=== PATIENT | male | born 1980 | race Hispanic/Latino ===

== ENCOUNTER 2017-01-14 17:26 | Emergency (ER) | payer OTHER ==
[2017-01-14 18:00] VITALS: BMI 29.0
[2017-01-14 18:04] VITALS: RESP 20
--- NOTE | 2017-01-14 18:39 | C.PDOC ---
History Of Present Illness 36 y/o male presents to emergency department with complaint of left sided chest/ rib pain that radiates to the back and neck for 2 days. Patient reports pain has been consistent, worsening with movement and deep inspiration. He notes that he went for a strenuous bike ride 2 days ago. Patient states pain initially felt "like a stitch". Notes past medical history of DVT appx 6 years ago, was on warfarin for 1 year following. Otherwise, denies fever, chills, dizziness, SOB, palpitations, nausea, vomiting, or other associated symptoms. Time Seen by Provider: 01/14/17 18:38 Chief Complaint (Nursing): Chest Pain History Per: Patient History/Exam Limitations: no limitations Onset/Duration Of Symptoms: Days, Persistent Current Symptoms Are (Timing): Still Present Quality: "Pain" Associated Symptoms: denies: Dyspnea, Diaphoresis Exacerbating Factors: Turning, Movement, Deep Breathing Recent travel outside of the [place]: No Past Medical History Reviewed: Historical Data, Nursing Documentation, Vital Signs Vital Signs: Last Vital Signs Temp 98 F 01/14/17 23:09 Pulse 72 01/14/17 23:09 Resp 20 01/14/17 23:09 BP 106/69 01/14/17 23:09 Pulse Ox 97 01/14/17 23:09 - Medical History PMH: Crohn's Disease, Deep Vein Thrombosis Family History: States: Unknown Family Hx - Social History Hx Alcohol Use: Yes Hx Substance Use: No - Immunization History Hx Tetanus Toxoid Vaccination: No Hx Influenza Vaccination: No Hx Pneumococcal Vaccination: No Review Of Systems Except As Marked, All Systems Reviewed And Found Negative. Constitutional: Negative for: Fever, Chills Cardiovascular: Positive for: Chest Pain. Negative for: Palpitations Respiratory: Negative for: Shortness of Breath, Wheezing Gastrointestinal: Negative for: Nausea, Vomiting Musculoskeletal: Positive for: Back Pain Skin: Negative for: Rash Neurological: Negative for: Weakness, Numbness, Headache, Dizziness Physical Exam - Physical Exam Appears: Non-toxic, No Acute Distress Skin: Normal Color, Warm, Dry Head: Atraumatic, Normacephalic Eye(s): bilateral: Normal Inspection, PERRL, EOMI Ear(s): Bilateral: Normal Nose: Normal Oral Mucosa: Moist Neck: Normal ROM, Supple Chest: Symmetrical Cardiovascular: Rhythm Regular (S1/S2 within normal limits), No Edema, No JVD Respiratory: No Accessory Muscle Use, No Rales, No Rhonchi, No Stridor, No Wheezing, Other (Lungs are CTA. Splinting on deep breaths. ) Gastrointestinal/Abdominal: Soft, No Tenderness, No Guarding, No Rebound Extremity: Normal ROM, No Pedal Edema, No Calf Tenderness, Capillary Refill (< 2 sec.), Other (No edema, clubbing or cyanosis) Extremity: Bilateral: Normal Color And Temperature Neurological/Psych: Oriented x3, Normal Speech, Normal Cognition, Normal Cranial Nerves, Normal Motor, Normal Sensation ED Course And Treatment - Laboratory Results Result Diagrams: 01/14/17 19:19 01/14/17 19:19 Lab Interpretation: Normal O2 Sat by Pulse Oximetry: 100 (RA) Pulse Ox Interpretation: Normal - CT Scan/US CT Abdomen and Pelvis With Intravenous Contrast Other Rad Studies (CT/US): Read By Radiologist, Radiology Report Reviewed CT/US Interpretation: FINDINGS: Lower thorax: The bilateral lung bases are clear. ABDOMEN: Liver: No acute findings. Gallbladder and bile ducts: The gallbladder is decompressed. No calcified stones. No significant. intra- or extrahepatic biliary ductal dilation. Pancreas: Enhances homogeneously. No ductal dilation. No discrete mass. Spleen: No acute findings. Adrenals: No acute findings. Kidneys and ureters: No acute findings. No hydronephrosis or renal calculi. No discrete solid mass. PELVIS: Bladder: The bladder is distended, but otherwise unremarkable. Reproductive: No acute findings. Appendix: The contrast-filled appendix is of normal caliber (series 3, image 127 ). ABDOMEN and PELVIS: Stomach and bowel: Oral contrast extends to the level of the colon, without obstruction. No mucosal. thickening. Peritoneum: No significant fluid collection. No free air. Lymph nodes: No pathologically enlarged lymph nodes. Vasculature: Unremarkable. Bones: No acute fracture. IMPRESSION: Normal appendix. No acute abdominal pathology to account for patient's symptoms, as detailed above. Medical Decision Making Medical Decision Making: Initial Impression: Atypical chest wall syndrome vs PE, ACS Plan: * EKG, bloodwork including D dimer. Naproxen 550mg PO. * Reassess Progress Notes: 20:02 - D-dimer found to be 626. CT chest ordered. 20:21 - Pt notes significant improvement of symptoms with Naproxen. Patient was informed of his D-dimer level and is going for CT scan of chest. Disposition - Disposition Referrals: [facility] [Outside] Disposition: HOME/ ROUTINE Disposition Time: 22:47 Condition: GOOD Additional Instructions: Take levaquin as prescribed Prescriptions: Acetaminophen/Hydrocodone Bi [Vicodin 300 mg-5 mg] 1 tab PO QID PRN #12 tab PRN Reason: pain levoFLOXacin [Levaquin] 500 mg PO DAILY 10 Days #10 tab Forms: [facility] (Bengali), General Discharge Instructions Print Language: ESTONIAN - Clinical Impression Clinical Impression: Pneumonia - Scribe Statement The provider has reviewed the documentation as recorded by the Scribe Ministerio Saravia All medical record entries made by the Adeleibe were at my direction and personally dictated by me. I have reviewed the chart and agree that the record accurately reflects my personal performance of the history, physical exam, medical decision making, and the department course for this patient. I have also personally directed, reviewed, and agree with the discharge instructions and disposition.
[2017-01-14] MEDS ORDERED: Naproxen 550 mg Tab PO STA (18:48)
[2017-01-14 19:22] LABS: BASO # 0.1 K/uL (0.0-0.2); BASO % 0.7 % (0.0-2.0); EOS # 0.1 K/uL (0.0-0.7); EOS % 0.9 % (0.0-4.0); HEMATOCRIT 40.6 % (35.0-51.0); LYMPH # 2.3 K/uL (1.0-4.3); LYMPH % 24.8 % (20.0-40.0); MEAN CELL VOLUME 85.8 fL (80.0-94.0); MEAN CORPUSCULAR HEMOGLOBIN 28.8 pg (27.0-31.0); MEAN CORPUSCULAR HGB CONC 33.5 g/dL (33.0-37.0); MEAN PLATELET VOLUME 7.8 fL (7.2-11.7); MONO % 10.6 % (0.0-10.0); RED CELL DISTRIBUTION WIDTH 14.7 % (11.5-14.5); WHITE BLOOD COUNT 9.2 K/uL (4.8-10.8)
[2017-01-14 19:30] LABS: CHLORIDE 98 mmol/L (98-107); POTASSIUM 4.3 mmol/L (3.6-5.2); SODIUM 137 mmol/L (132-148)
[2017-01-14 19:32] LABS: GFR AFRICAN-AMERICAN > 60
[2017-01-14 19:33] LABS: ALB/GLOB RATIO 1.2 (1.0-2.1); ALKALINE PHOSPHATASE 78 U/L (38-126); ALT/SGPT 45 U/L (21-72); AST/SGOT 21 U/L (17-59); BLOOD UREA NITROGEN 12 mg/dL (9-20); CALCIUM 9.3 mg/dl (8.6-10.4); CARBON DIOXIDE 26 mmol/L (22-30); GLUCOSE,RANDOM 87 mg/dL (75-110); TOTAL PROTEIN 7.4 g/dL (6.3-8.3)
[2017-01-14] MEDS ORDERED: Naproxen 550 mg Tab PO ONE (19:36)
[2017-01-14] MEDS ORDERED: Iodixanol 320 MG/ML 100 ML BOTTLE IV ONE (21:01)
--- NOTE | 2017-01-14 22:39 | CT ---
EXAM: CT Chest With Intravenous Contrast CLINICAL HISTORY: 36 years old, male; Pain; Chest pain; Type not specified TECHNIQUE: Axial computed tomography images of the chest with intravenous contrast. All CT scans at this facility use one or more dose reduction techniques, viz.: automated exposure control; ma/kV adjustment per patient size (including targeted exams where dose is matched to indication; i.e. head); or iterative reconstruction technique. Coronal and sagittal reformatted images were created and reviewed. CONTRAST: 100 mL of visipaque 320 administered intravenously. COMPARISON: No relevant prior studies available. EXAM: FINDINGS: Lungs: No mass. No consolidation. Small left-sided pleural effusion, with adjacent compressive atelectasis. Mild left basilar consolidation is also present. Pleural spaces: As above. Heart: No cardiomegaly. No significant pericardial effusion. Vasculature: No aortic aneurysm. Narrowing of the subclavian vein, at the thoracic inlet, for which clinical correlation is needed. Lymph nodes: Prominence of the mediastinal lymph nodes, the largest node at the level of the aorto pulmonary window measuring 8 mm in short axis dimension. Bones: No acute fracture. IMPRESSION: Mild left basilar consolidation. Small left-sided pleural effusion with adjacent compressive atelectasis. Narrowing of the subclavian vein at the level of the thoracic inlet for which clinical correlation (for thoracic outlet syndrome) is needed.
[2017-01-14 23:14] VITALS: BP 106/69; PULSE 72; TEMP 98
[2017-01-15 00:19] VITALS: O2SAT 100
--- NOTE | 2017-01-15 00:29 | RAD ---
HISTORY: chest pain COMPARISON: CT chest performed same day TECHNIQUE: Chest PA and lateral FINDINGS: LUNGS: Mild left basilar atelectasis. No focal consolidation seen. PLEURA: Small left pleural effusion. CARDIOVASCULAR: Heart size is within normal limits. OSSEOUS STRUCTURES: Visualized osseous structures are unremarkable. VISUALIZED UPPER ABDOMEN: Unremarkable. OTHER FINDINGS: None. IMPRESSION: Small left pleural effusion. Mild left basilar atelectasis.
--- NOTE | 2017-01-19 06:40 | CARD ---
APPROVED REPORT EKG Measurement Heart [id number] <Conclusion> Normal sinus rhythm Normal ECG
== END 2017-01-14 23:15 | disposition home or self-care (01) ==
LOC: C.ER 17:26
DX: J18.9 Pneumonia, unspecified organism (principal)
CPT/HCPCS: 71020; 71260; 80053; 84484; 85025; 85378; 99284; Q9967